=== PATIENT | female | born 1995 | race Caucasian/White ===

== ENCOUNTER 2019-07-30 10:54 | Inpatient (IN) ==
[2019-07-30] MEDS ORDERED: OXYTOCIN 30 UNITS/500 ML BAG IV PRN (14:08)
[2019-07-30 14:25] LABS: Hematocrit (blood only) 34.5 % (37-47); Hemoglobin 11.6 g/dL (12.0-16.0); Mean Corpuscular Hemoglobin 31.3 pg (25-34); Mean Platelet Volume 9.8 fL (7.4-10.4); Platelet Count 283 K/uL (130-400); RDW Coefficient of Variation 13.4 % (11.5-14.5); RDW Standard Deviation 45.4 fL (36.4-46.3); Red Blood Count 3.71 M/uL (4.2-5.4); White Blood Count 17.45 K/uL (4.8-10.8)
[2019-07-30 14:34] LABS: Mean Corpuscular Hgb Conc 33.6 g/dL (32-36)
--- NOTE | 2019-07-30 16:29 | Obstetrical Progress Note ---
Date of Service July 30, 2019 Subjective Admit Note 24 F P000 at 38.6 weeks seen today for SROM at about 9AM. Her GBS is negative. Irregular contractions spaced every 10 minutes or so. Cervix is 1/50/- 3/posterior/firm. EFW 7 lbs. Will start Cytotec PO. FHT Cat 1. Results & Data Vital Signs (Past 12 Hours) Vital Signs Temp Pulse Resp BP 07/30/19 15:00 36.7 C 20 07/30/19 14:56 90 120/67 07/30/19 13:34 36.9 C 96 H 18 106/71 07/30/19 12:08 36.5 C 18 07/30/19 12:05 102 H 117/70
[2019-07-30] MEDS ORDERED: miSOPROStoL 50 MCG TAB ONE (17:00)
[2019-07-30] MEDS: LACTATED RINGER'S 1,000 ML IV PRN ×2 (17:04→20:19)
[2019-07-30] MEDS ORDERED: fentaNYL citrate 100 MCG/2 ML VIAL ONE (19:19)
[2019-07-30] MEDS ORDERED: ePHEDrine sulfate 50 MG/ML AMP ONE (19:19)
[2019-07-30] MEDS ORDERED: BUPIVACAINE 0.25% 30 ML VIAL ONE (19:20)
[2019-07-30] MEDS ORDERED: fentaNYL 2MCG/ML ROPIV 1.25MG/ML 100 ML BAG EPI ONE (19:20)
[2019-07-30] MEDS ORDERED: miSOPROStoL 50 MCG TAB PO SCH (20:00)
--- NOTE | 2019-07-30 20:12 | Anesthesiology Consultation ---
Date of Service July 30, 2019 Assessment & Plan (1) Encounter for pre-operative examination: Chart Review Chart Review: Patient NOT seen in Pre Admission Testing and Acceptable Risk for Labor Epidural Consults Requested none ASA ASA2 Proposed Anesthesia Anesthesia Type: Labor Epidural Risk / Benefits Reviewed With: PT / POA / Parent / Guardian, Accepts Plan and Informed Consent Obtained History Height/Weight Height: 4 ft 11 in Weight: 72.121 kg Allergies Allergy/AdvReac Type Severity Reaction Status Date / Time Penicillins Allergy Unknown Rash Verified 05/22/19 17:32 Medications Home Medications Medication Instructions Recorded Confirmed Last Taken PNV cmb#95-ferrous fumarate-FA 1 tab PO DAILY 05/22/19 07/30/19 07/29/19 21:30 [] Active Medications Generic Name Dose Route Start Last Admin Trade Name Freq PRN Reason Stop Dose Admin Lactated Ringer's 1,000 mls @ 125 mls/hr 07/30/19 14:08 07/30/19 19:20 Lr IV 08/01/19 14:07 999 mls/hr .Q8H PRN Infusion L&D Protocol Protocol Misoprostol 50 mcg 07/30/19 20:00 07/30/19 17:01 Cytotec PO 08/29/19 19:59 50 mcg Q4 ELIZABETH Administration NPO Date Last Intake of Fluids: 07/30/19 Time Last Intake of Fluids: 20:07 Date Last Intake of Solids: 07/30/19 Time Last Intake of Solids: 11:00 Past Medical History Medical History Headache (Acute) Pituitary cyst (Acute) Ruptured globe (Acute) Exercise / Class Metabolic Activity II 4-5 Yardwork/Stairs/Walk up hill Past Family History Family History Grandmother (Maternal) Stroke Past Surgical History Surgical History History of dental surgery History of facial surgery Past Anesthesia History No Hx of Anesthesia Complications History of PONV No Hx of PONV Social History Smoking Status: Current every day smoker tobacco type: cigarettes Do You Dip or Chew Tobacco: No Hx Alcohol Use: Yes (when not ) Alcohol type: beer and wine alcohol intake frequency: a few times a month Hx Substance Use: No substance use type: does not use Review of Systems Negative for chest pain or shortness of breath. Patient denies history of abnormal bleeding or bleeding disorder. Patient denies active use of anticoagulants other than low dose aspirin. Patient denies numbness, tingling or weakness in lower extremities. Physical Exam Vital Signs Last Vital Signs Temp 36.7 C 07/30/19 15:00 Pulse 77 07/30/19 20:02 Resp 22 07/30/19 19:30 BP 128/81 07/30/19 19:28 Pulse Ox 100 07/30/19 20:02 Constitutional not obese (Gravid uterus) ENMT Mouth: no TMJ abnormality and oral opening not small Thyromental Distance: > or= 3.5 Finger Breadths Mallampati Class: II tongue ring Neck normal visual inspection; neck extension not limited Respiratory normal respiratory effort Auscultation: lungs clear to auscultation bilaterally Cardiovascular Rate/Rhythm: regular rate and regular rhythm Heart Sounds: no murmur Neurologic moves all extremities Psychiatric Orientation: alert and oriented x 3 Testing Laboratory Results 07/30/19 14:16
[2019-07-30] MEDS ORDERED: ONDANSETRON INJ 2 MG/ML 2 ML VIAL IV PRN (20:58)
[2019-07-30] MEDS ORDERED: ePHEDrine sulfate 50 MG/ML AMP IV PRN (20:58)
[2019-07-30] MEDS ORDERED: NALOXONE HCL 0.4 MG/1 ML VIAL/CARP IV PRN (20:58)
[2019-07-30] MEDS ORDERED: fentaNYL 2MCG/ML ROPIV 1.25MG/ML 100 ML BAG EPI PRN (20:58)
[2019-07-30] MEDS ORDERED: DiphenhydrAMINE HCL 50 MG/ML VIAL IV PRN (20:58)
[2019-07-30] MEDS ORDERED: NALBUPHINE HCL INJ 10 MG/ML AMP IV PRN (20:58)
[2019-07-30] MEDS ORDERED: NALOXONE HCL 1 MG in SODIUM CHLORIDE 0.9% 1000ML 1,000 ML IV PRN (20:58)
--- NOTE | 2019-07-30 21:10 | Obstetrical Progress Note ---
Date of Service July 30, 2019 Physical Exam Genitourinary: OB Exam Abdomen: + regular contractions Manual OB Exam: + cervical dilation 5 cm, + cervical effacement 80% and 90%, + station -2 and + amniotic fluid OB Exam Monitor Tracing: + external FHT monitor used, + external uterine monitor used, + category I and + normal FHT variability (epidural in place) Results & Data Vital Signs (Past 12 Hours) Vital Signs Temp Pulse Resp BP Pulse Ox 07/30/19 21:07 124 H 100 07/30/19 21:02 86 100 07/30/19 20:59 95 H 97/50 L 07/30/19 20:58 76 102/59 L 07/30/19 20:57 86 100 07/30/19 20:56 71 100/58 L 07/30/19 20:53 90 108/56 L 07/30/19 20:52 83 100 07/30/19 20:49 106 H 99/58 L 07/30/19 20:47 93 H 102/56 L 100 07/30/19 20:46 91 H 97/53 L 07/30/19 20:43 82 99/58 L 07/30/19 20:42 80 98/54 L 100 07/30/19 20:40 78 99/53 L 07/30/19 20:38 104 H 113/64 07/30/19 20:37 100 H 100 07/30/19 20:36 89 122/74 07/30/19 20:34 90 123/78 07/30/19 20:32 94 H 100 07/30/19 20:31 86 124/66 07/30/19 20:27 91 H 99 07/30/19 20:22 100 H 100 07/30/19 20:17 101 H 100 07/30/19 20:16 101 H 135/74 07/30/19 20:12 81 100 07/30/19 20:07 78 100 07/30/19 20:02 77 100 07/30/19 20:00 36.8 C 22 07/30/19 19:57 78 100 07/30/19 19:52 81 100 07/30/19 19:47 73 100 07/30/19 19:42 77 100 07/30/19 19:37 81 100 07/30/19 19:32 80 100 07/30/19 19:30 22 07/30/19 19:28 87 128/81 07/30/19 19:27 91 H 100 07/30/19 18:30 20 07/30/19 16:30 20 07/30/19 15:00 36.7 C 20 07/30/19 14:56 90 120/67 07/30/19 13:34 36.9 C 96 H 18 106/71 07/30/19 12:08 36.5 C 18 07/30/19 12:05 102 H 117/70
[2019-07-31] MEDS: LACTATED RINGER'S 1,000 ML IV PRN (00:18)
--- NOTE | 2019-07-31 04:26 | Delivery Summary ---
Vaginal Delivery Summary Date of Service July 31, 2019 Vaginal Delivery Summary Delivery Note live female over intact perineum RINA with nuchal cord x1 reduced at delivery. Delayed cord clamping with Apgars 8/9 weight pending. Cord blood obtained. First degree tear repaired with 2/0 Vicryl suture and 1% Lidocaine used for local. EBL 250 ml. Final sponge, needle and instrument count are correct. Mom and baby stable.
[2019-07-31] MEDS ORDERED: HYDROCORTISONE ACETATE 25 MG SUPP PR PRN (06:44)
[2019-07-31] MEDS ORDERED: BENZOCAINE 20% AER SPR 82.5 GM CAN EXT PRN (06:44)
[2019-07-31] MEDS ORDERED: SUPERCREAM 0.870% 15 GM JAR EXT PRN (06:44)
[2019-07-31] MEDS ORDERED: OXYTOCIN 30 UNITS/500 ML BAG IV PRN (06:44)
[2019-07-31] MEDS ORDERED: DIPHTHERIA/TETANUS/PERTUSSIS 0.5 ML SYR/VIAL IM ONE (06:44)
[2019-07-31] MEDS ORDERED: MEASLES, MUMPS & RUBELLA VIRUS VIAL SQ ONE (06:44)
[2019-07-31] MEDS ORDERED: ACETAMINOPHEN 325 MG TAB PO PRN (06:44)
[2019-07-31] MEDS ORDERED: bisacodyL 10 MG SUPP PR PRN (06:44)
--- NOTE | 2019-07-31 07:36 | Anesthesia Procedure Note ---
Date of Service July 31, 2019 Anesthesia Post Epidural Note Vital Signs Vital Signs: Temp Pulse Resp BP Pulse Ox 37.0 C 95 H 16 101/55 L 97 07/31/19 06:14 07/31/19 06:14 07/31/19 06:14 07/31/19 06:14 07/31/19 04:27 Pain Intensity Bilateral Lower Abdomen: Pain Intensity: 2 Head: Pain Intensity: 4 Notes Mental Status: alert / awake / arousable and participated in evaluation Nausea / Vomiting: adequately controlled Pain: adequately controlled Airway Patency, RR, SpO2: stable & adequate BP & HR: stable & adequate Hydration State: stable & adequate Neuraxial Anesthesia: was administered and sensory block is resolving Anesthetic Complications: no major complications apparent and Pt Satisfied with anesthetic care Epidural: Removed without complications and With tip intact
[2019-07-31] MEDS: DOCUSATE SODIUM 100 MG CAP PO SCH ×2 (08:05→19:31)
[2019-07-31] MEDS: PRENATAL VITAMIN 1 TAB PO SCH (08:05)
[2019-07-31] MEDS: FERROUS SULFATE 325 MG TAB PO SCH (08:06)
[2019-07-31] MEDS ORDERED: NON-FORMULARY MEDICATION (Pnv Cmb#95-Ferrous Fumarate-Fa [Prenatal] 1 TAB) PO SCH (09:00)
[2019-07-31] MEDS: IBUPROFEN 600 MG TAB PO PRN ×3 (10:34→19:31)
[2019-08-01] MEDS: IBUPROFEN 600 MG TAB PO PRN ×3 (01:28→12:20)
[2019-08-01 06:22] LABS: Hematocrit (blood only) 30.2 % (37-47); Hemoglobin 10.1 g/dL (12.0-16.0); Mean Corpuscular Hemoglobin 31.8 pg (25-34); Mean Corpuscular Hgb Conc 33.4 g/dL (32-36); Mean Platelet Volume 9.7 fL (7.4-10.4); Platelet Count 253 K/uL (130-400); RDW Coefficient of Variation 13.5 % (11.5-14.5); RDW Standard Deviation 47.2 fL (36.4-46.3); Red Blood Count 3.18 M/uL (4.2-5.4); White Blood Count 19.62 K/uL (4.8-10.8)
[2019-08-01] MEDS: PRENATAL VITAMIN 1 TAB PO SCH (07:52)
[2019-08-01] MEDS: DOCUSATE SODIUM 100 MG CAP PO SCH (07:52)
--- NOTE | 2019-08-01 09:45 | Obstetrical Progress Note ---
Date of Service August 01, 2019 Subjective Patient is seen and examined. She feels well, no complaints. Likes to be discharged today. Her family is waiting for her. Ambulating without dizziness Voiding without difficulty Tolerating regular diet with out N&V Bleeding is minimal No fever/ chills/ CP/ SOB/ N&V/ Leg pain Breast feeding without problems Vital Signs Temp Pulse Resp BP Pulse Ox 08/01/19 07:50 36.4 C L 74 20 121/76 08/01/19 04:30 36.6 C 66 18 106/68 99 08/01/19 00:30 36.8 C 76 18 100/65 97 07/31/19 19:30 36.8 C 84 16 108/72 98 07/31/19 15:40 36.7 C 80 20 109/72 07/31/19 13:15 36.5 C 83 20 105/67 08/01/19 07/31/19 Range/Units 05:50 20:47 WBC 19.62 H (4.8-10.8) K/uL RBC 3.18 L (4.2-5.4) M/uL Hgb 10.1 L (12.0-16.0) g/dL Hct 30.2 L (37-47) % MCV 95.0 (80-100) fL MCH 31.8 (25-34) pg MCHC 33.4 (32-36) g/dL RDW Std Deviation 47.2 H (36.4-46.3) fL RDW Coeff of Bill 13.5 (11.5-14.5) % Plt Count 253 (130-400) K/uL MPV 9.7 (7.4-10.4) fL HIV 1&2 Ab/P24 Ag 4thGn Neg (Neg) PE: General: Alert, orientedx3, NAD Abd: soft, NT, fundus firm, below Umbilicus Perineum intact, Lochia rubra minimal Ext; NT, no edema AP: 24 yo s/p , ppd# 1 VSS Afebrile doing well WBCC elevated, afebrile, asymptomatic Recommended to stay for observation and repeat in am But she likes to be discharged today and is bringing baby back to [employer] [employer] [place] office and likes blood work repeated then Discussed when to call All questions were answered D/C home , f/u in office Results & Data Vital Signs (Past 12 Hours) Vital Signs Temp Pulse Resp BP Pulse Ox 08/01/19 07:50 36.4 C L 74 20 121/76 08/01/19 04:30 36.6 C 66 18 106/68 99 08/01/19 00:30 36.8 C 76 18 100/65 97
[2019-08-01] MEDS: FERROUS SULFATE 325 MG TAB PO SCH (10:10)
[2019-08-01] MEDS ORDERED: bisacodyL 5 MG TABEC PO SCH (20:00)
== END 2019-08-01 14:10 | disposition home or self-care (01) | DRG 807 ==
LOC: OPB 10:54 → 4S1 10:59 → 4S2 07-31 06:35